=== PATIENT | female | born 1995 | race Caucasian/White ===

== ENCOUNTER 2024-07-23 09:17 | Day surgery (SDC) | payer OTHER ==
[~2024-07-23 09:17] MED LIST: HYDROmorphone 0.5 MG/0.5 ML Syringe IVPUSH PRN; Sodium Chloride 0.9% 10 ML Syringe FLUSH PRN; Sodium Chloride 0.9% 10 ML Syringe FLUSH SCH; fentaNYL 100 MCG/2 ML SDV IVPUSH PRN
[2024-07-23] MEDS: Lactated Ringers 1,000 ML IV SCH (09:50)
[2024-07-23] MEDS ORDERED: Midazolam 1 MG/ML 2 ML SDV ONE (09:58)
[2024-07-23] MEDS ORDERED: Propofol 200 MG/20 ML SDV ONE (09:58)
[2024-07-23] MEDS ORDERED: Lidocaine 1% 5 ML VIAL ONE (09:59)
[2024-07-23] MEDS ORDERED: Dexamethasone 4 MG/ML 5 ML MDV ONE (09:59)
[2024-07-23] MEDS ORDERED: Sodium Chloride 0.9% 100 ML ONE (09:59)
[2024-07-23] MEDS ORDERED: dexmedeTOMIDine HCl 200 MCG/2 ML SDV ONE (09:59)
[2024-07-23] MEDS ORDERED: fentaNYL 250 MCG/5 ML SDV ONE (09:59)
[2024-07-23] MEDS ORDERED: ceFAZolin 2 GM Vial ONE (09:59)
[2024-07-23] MEDS ORDERED: Ketorolac 30 MG/ML SDV ONE (09:59)
[2024-07-23] MEDS ORDERED: ePHEDrine 50 MG/ML SDV ONE (10:21)
[2024-07-23] MEDS: EPINEPHrine 1 MG/ML SDV ONE (10:38)
[2024-07-23] MEDS: Bupivacaine 0.25% 10 ML SDV ONE (10:48)
[2024-07-23] MEDS: Ondansetron 4 MG/2 ML SDV IVPUSH PRN (12:29)
[2024-07-23] MEDS: Acetaminophen/HYDROcodone 325-5 MG Tab PO PRN (12:30)
== END 2024-07-23 13:00 | disposition home or self-care (01) ==
LOC: JD.SDS 09:17
PROVIDERS: ATTEND Orthopaedic Surgery
DX: M94.262 Chondromalacia, left knee (principal); Z87.891 Personal history of nicotine dependence
CPT/HCPCS: 29877; A9270; J0171; J0665; J0690; J1100; J1885; J2250; J2405; J2704; J3010; J3490; J7120; 01400